=== PATIENT | female | born 1950 | race Caucasian/White ===

== ENCOUNTER 2017-05-01 16:15 | Emergency (ER) | payer OTHER ==
[~2017-05-01] VITALS: Ht 162.6 cm; Wt 94.2 kg
[~2017-05-01 16:15] MED LIST: CHOL100010 PO; CIPR250T5 PO; CRAN1CAP15 PO; CYAN100020 PO; DIPH-437 PO; FLUT0.15 NAE; GLUC500C67 PO; HYDR25TA4 PO; LISI5TAB3 PO; LORA0.5T12; MECL1TAB42 PO; OMEP40CA PO; TPRSR/25 PO; VITA1TAB4 PO
[2017-05-01 16:19] VITALS: TEMP 36.8; Ht 162.6 cm; Wt 94.2 kg
[2017-05-01] MEDS ORDERED: LSN5 PO (16:59)
[2017-05-01] MEDS ORDERED: OMEP40CA41 PO (16:59)
[2017-05-01] MEDS ORDERED: CRAN1CAP14 PO (16:59)
[2017-05-01] MEDS ORDERED: CYAN1CAP4 PO (17:01)
[2017-05-01] MEDS ORDERED: MoRPHine SULFATE 4 MG/ML 1 ML CARP\\VIAL IV STA (17:05)
[2017-05-01 17:07] LABS: URINE APPEARANCE CLEAR (CLEAR); URINE BILIRUBIN NEG (NEG); URINE COLOR YELLOW; URINE EPITHELIAL CELL AUTO 20-30 /lpf (0-5); URINE NITRITE NEG (NEG); URINE SPECIFIC GRAVITY 1.024 (1.000-1.030); UROBILINOGEN NEG (NEG)
[2017-05-01 17:08] LABS: MANUAL MICROSCOPIC REQUIRED? NO; REVIEW REQ? NO
[2017-05-01 17:20] LABS: BASO % 0.5 %; BASO ABS # 0.03 K/uL (0-0.2); COMPLETE YES; EOS % 0.9 %; HEMATOCRIT 43.2 % (37-47); LYMPH % 17.9 %; LYMPH ABS # 1.19 K/uL (1.2-3.4); MEAN CELL VOLUME 88.9 fL (80-100); MEAN CORPUSCULAR HEMOGLOBIN 29.4 pg (25-34); MEAN CORPUSCULAR HGB CONC 33.1 g/dl (32-36); MEAN PLATELET VOLUME 10.4 fL (7.4-10.4); MONO % 8.6 %; NEUT % 72.1 %; PLATELET COUNT 243 K/uL (130-400); RED BLOOD COUNT 4.86 M/uL (4.2-5.4); WHITE BLOOD COUNT 6.65 K/uL (4.8-10.8)
[2017-05-01 17:28] LABS: INR 0.9 (0.9-1.1); PROTHROMBIN TIME (PATIENT) 10.1 SECONDS (9.0-12.0)
[2017-05-01 17:37] LABS: ALT/SGPT 22 U/L (12-78); BLOOD UREA NITROGEN 21 mg/dl (7-18); BUN/CREATININE RATIO 25.9 (10-20); CALCIUM 9.3 mg/dl (8.5-10.1); CARBON DIOXIDE 27 mmol/L (21-32); CHLORIDE 104 mmol/L (98-107); CREATININE 0.82 mg/dl (0.60-1.20); GLUCOSE 134 mg/dl (70-99); POTASSIUM 3.4 mmol/L (3.5-5.1); SODIUM 139 mmol/L (136-145)
[2017-05-01 17:40] LABS: ALKALINE PHOSPHATASE 97 U/L (45-117); AST/SGOT 20 U/L (15-37)
--- NOTE | 2017-05-01 18:19 | DIAGNOSTIC IMAGING REPORT ---
ULTRASOUND LEFT LOWER EXTREMITY VENOUS CLINICAL HISTORY: Left leg swelling. COMPARISON STUDY: No priors. TECHNIQUE: Real-time, grayscale, and color Doppler sonography of the deep veins of the left lower extremity was performed from the inguinal crease to the calf. Compression and augmentation were utilized. FINDINGS: There is no sonographic evidence of deep venous thrombosis identified in the left lower extremity. The common femoral, superficial femoral, and popliteal veins are patent and normally compressible. The greater saphenous vein and the profunda femoris vein at the junction with the common femoral vein are clear. The visualized calf veins are patent. IMPRESSION: There is no sonographic evidence of deep venous thrombosis identified in the left lower extremity. Electronically signed by: Codey Astudillo M.D. 05/01/2017 6:17 PM Dictated Date/Time: 05/01/2017 6:17 PM
[2017-05-01] MEDS ORDERED: OPTIRAY 320 IV PRN (20:15)
--- NOTE | 2017-05-01 20:37 | DIAGNOSTIC IMAGING REPORT ---
CT ANGIOGRAM OF THE ABDOMEN AND PELVIS CLINICAL HISTORY: Hematochezia. History of colitis. Left lower extremity edema. COMPARISON STUDY: Abdominal CT dated 04/04/2016. TECHNIQUE: Following the IV administration of 119 cc of Optiray 320, CT angiogram of the abdomen and pelvis was performed from the lung bases the proximal femora. Images are reviewed in the axial, sagittal, and coronal planes. 3-D MIPS images are created and assessed. IV contrast was administered without complication. A dose lowering technique was utilized adhering to the principles of ALARA. CT DOSE: 856.49 mGy.cm FINDINGS: Lower chest: The heart is normal in size and without pericardial effusion. The lung bases are clear. There is a tiny hiatal hernia. Liver: The contrast-enhanced liver is normal in size, contour, and attenuation. There is no intrahepatic or ductal dilatation. The main portal veins appear patent. There are numerous hepatic cysts measure up to 5 cm. Additional subcentimeter hepatic hypodensities also likely represent cysts but are too small for definitive characterization. Gallbladder: Unremarkable. Spleen: Normal in size and attenuation noting heterogeneous arterial phase enhancement. Pancreas: Moderately atrophic and grossly unremarkable. Adrenal glands: Unremarkable. Kidneys: The contrast enhanced kidneys are atrophic and without hydronephrosis. The kidneys enhance symmetrically. There is a 4 mm nonobstructing calculus in the left lower pole. Tiny parapelvic cysts are suggested bilaterally. Abdominal aorta and iliac arteries: The abdominal aorta is normal in course and caliber noting mild atherosclerotic calcification. The iliac arteries are widely patent bilaterally. No dissection is seen. Major branches of the abdominal aorta: The celiac trunk, superior mesenteric, and inferior mesenteric arteries are widely patent. Hepatic arterial anatomy is conventional. The splenic artery is patent. Single bilateral renal arteries are widely patent. Bowel: There is mild colonic diverticulosis without CT evidence of acute diverticulitis. No bowel obstruction is seen. There is a tiny duodenal diverticulum. The appendix is normal as visualized. Peritoneum: There is no intraperitoneal free air or abdominal ascites. There is a small fat-containing umbilical hernia. Lymphadenopathy: None. Pelvic viscera: The bladder and uterus are normal as visualized. A 3.3 cm simple appearing cystic lesion is noted in the left ovary on image #[id number]. Findings suggest pelvic floor prolapse. Skeletal structures: The skeletal structures are osteopenic. There is mild lumbosacral spondylosis. No lytic or blastic bony lesions are seen. IMPRESSION: 1. There are no acute infectious or inflammatory findings in the abdomen or pelvis. 2. Unremarkable CT angiogram of the abdominal aorta and its major branches. 3. Nonobstructing left or a calculus. 4. There is a 3.3 cm simple appearing cystic lesion in the left ovary, not significant change from 04/04/2016. This is pathologically indeterminant and can be followed with a nonemergent pelvic ultrasound if clinically warranted. 5. Mild colonic diverticulosis without CT evidence of acute diverticulitis. 6. Additional findings as above. Electronically signed by: Codey Astudillo M.D. 05/01/2017 8:36 PM Dictated Date/Time: 05/01/2017 8:28 PM
--- NOTE | 2017-05-01 21:28 | EMERGENCY ROOM VISIT NOTE ---
ED Visit Note First contact with patient: 16:23 Patient seen and examined at bedside. Discussed all results with patient. Discussed need for close follow-up. Discussed possible differential diagnosis of symptoms. VS stable here. Family agreeable with plan. Discussed possible need for GI evaluation for egd/colo.
[2017-05-01 21:36] VITALS: BP 130/70; PULSE 74; O2SAT 99
--- NOTE | 2017-05-02 00:42 | EMERGENCY ROOM VISIT NOTE ---
ED Visit Note First contact with patient: 16:23 Chief Complaint: My left lower leg is swollen and right before I came to the hospital I started passing blood in my stool. History of Present Illness: Ms. Mercado is a 66-year-old white female who ambulates into the ED accompanied by multiple family members complaining of left lower leg swelling and rectal bleeding. Historically patient was admitted to the hospital on March 2016 for rectal bleeding and her discharge diagnosis was ischemic colitis. On follow-up visits she has been well and had no recurrence. Patient reports 2 nights ago she was getting out of bed and had an acute sensation of a charley horse-like pain in the left calf. She reports she went back to bed and had resolution of her pain. She has noted since that time she is felt a lump over the middle of the gastrocnemius and has noted left lower leg swelling. This is associated with mild intermittent anterior lower leg pain. Her discomfort is not always located at the same site and has been over the medial lateral aspect of the lower leg. She just describes it as a mild achiness sensation and rates her discomfort 3/10. She is not identified any aggravating or alleviating factors related to the pain. Her pain does self resolved and she has not taken any medication for her pain. She denies any associated symptoms including recent trauma, back pain, hip pain, knee pain, ankle pain, foot pain, leg weakness/numbness/tingling, chest pain, shortness of breath, cough, wheezing, palpitations, orthopnea, previous clots/claudication, recent surgery/inactivity/extended travel. Additionally patient reports she was leaving her home to come to the hospital when she developed a mild crampy abdominal pain and went to the bathroom and reports she had a medium sized bowel movement that contained bright red blood. After she had her bowel movement her pain soft resolved. She has had no associated symptoms with this bowel movement. She denies fevers, chills, sweats , nausea, vomiting, urinary symptoms, hematuria, vaginal bleeding, vaginal discharge, abnormal bleeding, easy bruising, decreased appetite, weight loss. Review of Systems: As noted above in history of present illness. All body systems were reviewed and found to be negative as noted above. Past Medical History: As previously noted, GERD, hypertension, TMJ syndrome, anxiety, diaphoretic hernia. Current Medications: Medications Dose Route/Sig Max Daily Dose Days Date Category B-12 (Cyanocobalamin) 5,000 Mcg Cap 5,000 Mcg PO QAM 05/01/17 Reported Cranberry Plus Vitamin C (Cranberry-Vitamin C-Vitamin E) 1 Cap Cap 1 Cap PO QAM 05/01/17 Reported Prilosec (Omeprazole) 40 Mg Cap 40 Mg PO QAM 05/01/17 Reported Lisinopril 5 Mg Tab 5 Mg PO QPM 05/01/17 Reported Vitamin D (Cholecalciferol) 1,000 Unit Tab 1,000 Units PO DAILY 04/04/16 Reported Metoprolol Succinate ER (Metoprolol Succinate) 25 Mg Tabcr 12.5 Mg PO DAILY PRN 04/04/16 Reported Meclizine Hcl 25 Mg Tab 1 Tab PO DAILY PRN 30 04/04/16 Reported Flonase Allergy Relief (Fluticasone Propionate (Nasal)) 50 Mcg/Act Spr 2 Sprays BECCA DAILY PRN 04/04/16 Reported Cosamin Ds (Glucosamine-Chondroitin) 1 Cap Cap 2 Cap PO DAILY 04/04/16 Reported Tylenol Pm (Acetaminophen/Diphenhydramine HCl) 500 Mg/25 Mg Tab 1 Tab PO HS PRN 04/04/16 Reported Lorazepam 0.5 Mg Tab 0.5 Mg AMHS PRN 12/02/12 Reported Hctz (Hydrochlorothiazide) 25 Mg Tab 25 Mg PO DAILY 12/02/12 Reported Allergies to Medications: Ciprofloxacin, sulfa. Social History: Patient is not employed; she feels safe in her home environment ; she denies tobacco use. Physical Examination: Vital Signs: Date Time Temp Pulse Resp B/P (MAP) Pulse Ox O2 Delivery O2 Flow Rate FiO2 05/01/17 21:36 74 16 130/70 99 05/01/17 20:26 81 16 133/80 98 Room Air 05/01/17 18:53 96 05/01/17 18:52 96 05/01/17 18:46 98 18 148/84 97 Room Air 05/01/17 16:19 36.8 112 18 172/98 97 Room Air GENERAL: 66-year-old female in no acute distress, nontoxic-appearing, afebrile and hemodynamically stable. Patient does appear anxious. NEUROLOGICAL: Awake, alert and oriented to person, place and time. Answering questions appropriately and following commands. Normal gait. Good hand eye coordination. SKIN: Warm, dry and pink. No soft tissue eruptions or trauma noted. HEENT: Atraumatic and normocephalic. PERRLA. Sclera white and conjunctiva pink. No drainage from naris. Oral cavity moist and pink. Pharynx is nonerythematous or edematous. Speech normal. No lymphadenopathy. Trachea midline. No jugular venous distention. BACK: No tenderness over the bony spine. No CVA tenderness. THORAX: Lungs sounds are clear to auscultation and equal bilaterally with symmetrical chest wall. No wheezing, rales or rhonchi. No crepitus, tenderness , subcutaneous air or deformities noted. HEART: Regular rate and rhythm. No gallops, rubs or murmurs are appreciated. ABDOMEN: Flat, soft and nontender. Positive bowel sounds in all quadrants. No guarding, rigidity or organomegaly. RECTUM: Patient does have blood around her sphincter. There are multiple hemorrhoids in this area but none are actively bleeding. There is no local erythema or edema. Normal rectal tone. No palpable rectal masses. Sample tested positive for bright red blood; no melena was observed. EXTREMITIES: Moves all extremities well on command and with purpose. All distal neurovascular statuses are intact and equal bilaterally. No calf tenderness or cords. ED Course: Patient is assessed as noted above. Patient's medication list was reviewed. Laboratory Testing: Results Past 24 Hours Test 05/01/17 16:53 05/01/17 17:07 05/01/17 17:34 05/01/17 19:27 Range/Units Urine Color YELLOW Urine Appearance CLEAR CLEAR Urine pH 6.0 4.5-7.5 Urine Specific [place] 1.024 1.000-1.030 Urine Protein NEG NEG Urine Glucose (UA) NEG NEG Urine Ketones NEG NEG Urine Occult Blood TRACE NEG Urine Nitrite NEG NEG Urine Bilirubin NEG NEG Urine Urobilinogen NEG NEG Urine Leukocyte Esterase TRACE NEG Urine WBC (Auto) 1-5 0-5 /hpf Urine RBC (Auto) 0-4 0-4 /hpf Urine Hyaline Casts (Auto) 1-5 0-5 /lpf Urine Epithelial Cells (Auto) 20-30 0-5 /lpf Urine Bacteria (Auto) NEG NEG White Blood Count 6.65 4.8-10.8 K/uL Red Blood Count 4.86 4.2-5.4 M/uL Hemoglobin 14.3 12.0-16.0 g/dL Hematocrit 43.2 37-47 % Mean Corpuscular Volume 88.9 80-100 fL Mean Corpuscular Hemoglobin 29.4 25-34 pg Mean Corpuscular Hemoglobin Concent 33.1 32-36 g/dl Platelet Count 243 130-400 K/uL Mean Platelet Volume 10.4 7.4-10.4 fL Neutrophils (%) (Auto) 72.1 % Lymphocytes (%) (Auto) 17.9 % Monocytes (%) (Auto) 8.6 % Eosinophils (%) (Auto) 0.9 % Basophils (%) (Auto) 0.5 % Neutrophils # (Auto) 4.80 1.4-6.5 K/uL Lymphocytes # (Auto) 1.19 1.2-3.4 K/uL Monocytes # (Auto) 0.57 0.11-0.59 K/uL Eosinophils # (Auto) 0.06 0-0.5 K/uL Basophils # (Auto) 0.03 0-0.2 K/uL RDW Standard Deviation 40.4 36.4-46.3 fL RDW Coefficient of Variation 12.5 11.5-14.5 % Immature Granulocyte % (Auto) 0.0 % Immature Granulocyte # (Auto) 0.00 0.00-0.02 K/uL Prothrombin Time 10.1 9.0-12.0 SECONDS Prothromb Time International Ratio 0.9 0.9-1.1 Activated Partial Thromboplast Time 24.7 21.0-31.0 SECONDS Partial Thromboplastin Ratio 1.0 Sodium Level 139 136-145 mmol/L Potassium Level 3.4 3.5-5.1 mmol/L Chloride Level 104 98-107 mmol/L Carbon Dioxide Level 27 21-32 mmol/L Anion Gap 8.0 3-11 mmol/L Blood Urea Nitrogen 21 7-18 mg/dl Creatinine 0.82 0.60-1.20 mg/dl Est Creatinine Clear Calc Drug Dose 73.1 ml/min Estimated GFR () 85.2 Estimated GFR (Non- 73.5 BUN/Creatinine Ratio 25.9 10-20 Random Glucose 134 70-99 mg/dl Calcium Level 9.3 8.5-10.1 mg/dl Total Bilirubin 0.2 0.2-1 mg/dl Direct Bilirubin < 0.1 0-0.2 mg/dl Aspartate Amino Transf (AST/SGOT) 20 15-37 U/L Alanine Aminotransferase (ALT/SGPT) 22 12-78 U/L Alkaline Phosphatase 97 45-117 U/L Total Protein 7.1 6.4-8.2 gm/dl Albumin 4.0 3.4-5.0 gm/dl Lipase 190 73-393 U/L Bedside Lactic Acid Venous 1.36 0.90-1.70 mmol/L Lactic Acid Level 1.1 0.4-2.0 mmol/L Left Lower Extremity Venous Doppler Ultrasound: Was reviewed by myself and read by the radiologist and shows no evidence of deep vein thrombus. Abdominal And Pelvic CTA: Was reviewed by myself and read by the radiologist showing no acute infectious or inflammatory findings, unremarkable CTA, nonobstructing left renal calculus, 3.3 cm simple-appearing cystic lesion on the left ovary, and mild colonic diverticulosis without evidence of acute diverticulosis. Patient was offered morphine for pain and refused. Patient was reassessed multiple times during her stay in the emergency department. Patient's case was reviewed with Dr. Quezada; she apparently assessed the patient we agreed on diagnostic approach, treatment, disposition and plan. Patient was educated about today's findings and instructed on her treatment plan ; she verbalizes understanding and agreement with this plan. Clinical Impression: Left lower leg swelling. Decision-Making: Initially my differential diagnosis for her leg swelling I considered popliteal cyst rupture, DVT, musculoskeletal injury, there was pains and other causes. For her bright red blood per rectum I considered colitis, diverticulitis, hemorrhoids and other causes. Disposition: Patient discharged home in stable condition accompanied by little family members and subjectively reported she remained pain-free. Plan: Patient was encouraged to stop her aspirin at this time but continue other medications as prescribed. Patient was encouraged to stay well-hydrated with increased clear fluids. 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 Patient was encouraged return ED for worsening/uncontrolled abdominal pain, worsening bright red blood per rectum, worsening leg swelling, uncontrolled fevers, chest pain, shortness of breath, sensations of heart racing, fevers or any new/concerning symptoms.
== END 2017-05-01 21:36 | disposition home or self-care (01) ==
LOC: C.EDB 16:16 → C.EDA 21:36
DX: R22.42 Localized swelling, mass and lump, left lower limb (principal); N20.0 Calculus of kidney; N83.202 Unspecified ovarian cyst, left side; K57.30 Diverticulosis of large intestine without perforation or abscess without bleeding; I10 Essential (primary) hypertension; K21.9 Gastro-esophageal reflux disease without esophagitis; F41.9 Anxiety disorder, unspecified; Z79.899 Other long term (current) drug therapy; Z88.2 Allergy status to sulfonamides